=== PATIENT | male | born 1960 | race Caucasian/White ===

== ENCOUNTER → 2017-09-25 | Day surgery (SDC) | payer BC ==
[~2017-09-25] MED LIST: Acetaminophen IV 1GM/100ML * 1,000 MG/100 ML VIAL IVPB ONE; Buffered Lidocaine 0.9% SYRIN* 5 ML/SYR SYRINGE INTRADERM ONE; Bupivacaine 0.25% SDV* 30 ML ONE; Clindamycin 900 MG IVPREMIX(* 900 MG/50 ML SDV IV ONE; EPHEDrine (Pressors)* 50 MG/ML VIAL ONE; Famotidine IV* 10 MG/ML 2 ML (20 mg) ONE; HYDROmorphone INJ* 1 MG/ML CARPUJECT SYRINGE IV PRN; KETAMINE HCL* 50 MG/ML 10 ML VIAL ONE; Ketorolac INJ* 30 MG/ML 1 ML VIAL ONE; Levalbuterol 1.25MG/0.5ML NEB INH PRN; Levalbuterol 1.25MG/0.5ML NEB ONE; Lidocaine 2% VISCOUS* 15 ML UDC ONE; Midazolam* 1 MG/ML 2 ML VIAL (2 MG) ONE; Naloxone* 0.4 MG/ML 1 ML VIAL IV PRN; Ondansetron INJ* 2 MG/ML VIAL IV PRN; Ondansetron ODT TAB* 4 MG ONE; PROCHLORPERAZINE INJ 5 MG/ML 2 ML VIAL IV PRN; Propofol* 10 MG/ML 20 ML BTL IV PUSH ONE; Rocuronium* 10 MG/ML VIAL ONE; Scopolamine 1.5 mg* PATCH TRANSDERM PRN; Scopolamine PATCH Remove* 1 NOTE MISC PATCH OFF ONE; fentaNYL* 50 MCG/ML 2 ML VIAL (100 MCG VIAL) ONE; oxyCODONE TAB* 5 MG TAB ONE; oxyCODONE TAB* 5 MG TAB PO PRN
--- NOTE | 2017-09-25 14:57 | RAD ---
INDICATION: History of humerus fracture, trauma COMPARISONS: July 23, 2017, September 22, 2017 TECHNIQUE: Fluoroscopy was provided for a surgical procedure. Total fluoroscopy time is: 12 seconds FINDINGS: Spot images demonstrate internal fixation of the humerus. IMPRESSION: FLUOROSCOPY WAS PROVIDED FOR A SURGICAL PROCEDURE CPT II Codes: G9500
[2017-09-25] MEDS: fentaNYL* 50 MCG/ML 2 ML VIAL (100 MCG VIAL) IV PRN ×2 (15:39→15:44)
[2017-09-25 15:52] VITALS: BP 123/91
--- NOTE | 2017-09-26 10:37 | OP ---
DATE OF OPERATION: 09/25/17 [facility] DATE OF : 64 SURGEON: Holden Pineda MD. DRAFTER TOOL DESIGN: PÉREZ Rose, and PÉREZ [employer] student. An assistant in nursing was needed for the entirety of the procedure to aid in positioning of the arm and retraction. ANESTHESIOLOGIST: Dr. Gibbons. ANESTHESIA: General plus peripheral nerve block. PRE-OP DIAGNOSIS: Left humerus shaft nonunion. POST-OP DIAGNOSIS: Left humerus shaft nonunion. OPERATIVE PROCEDURE: Open repair of left humerus nonunion with internal fixation, local bone graft, and compression technique. 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 There is gross motion at the fracture site. We talked about surgical options. He understands the risk of radial nerve injury, understands the risk of nonunion despite surgery, the risk of infection. He wanted to proceed. ESTIMATED BLOOD LOSS: 400 mL. COMPLICATIONS: None. FINDINGS: See above and below. DESCRIPTION OF PROCEDURE: Marky was seen in the preoperative holding area. The correct site, side, and procedure were identified. We came back to the operating room. A block was performed. We had very difficult time intubating him as he had a very difficult airway. Ultimately, he was able to be intubated. The patient was then positioned supine at the arm table. The arm was prepped and draped in the usual fashion. A time-out was performed. I began by making a longitudinal incision just on the lateral border of the biceps. Dissection was carried down and the cephalic vein was mobilized and during the mobilization, it was lacerated and so I tied it off the interval was then developed down and the biceps was retracted medially. The brachialis was seen. The radial nerve was encountered and protected throughout the case. The brachialis was split down the middle in the internervous plane. The nonunion was apparent even for splitting the brachialis. It took quite some time in a lot of work and a lot of subperiosteal dissection. Ultimately, the disorganized fibrous tissue was excised. There was some callus that was excised to get back to good normal bone edges. I then made an attempt to reduce and clamp the nonunion; however, I could not get a good clamp as there just was not enough obliquity to the fracture. Please note that during the entirety of the dissection, the subperiosteal elevation, the placement of retractors and clamps. Great care was taken not to reach around the bone and grab the radial nerve. No blind clamping was done. No blind placement of retractors. Everything was done very carefully so as to protect the radial nerve. I decided to use a plate as a reduction tool, so I went ahead and selected an 8 hole narrow 4.5 large frag plate. This was placed in an appropriate location on the proximal fragment. It was secured with one screw. I then used the plate to help reduce the bone. Once I had it reduced, I placed a couple of clamps on it. The fluoroscopic imaging was used to confirm the reduction of the nonunion. It was looking very good on orthogonal imaging. I therefore placed another 4.5 compression screw proximally. I then placed sequentially 2 screws in the distal fragment both in compression technique. I had used the table top plate duran to bend the plate just a little bit so it was still proud off the bone at the site of the nonunion, so as not to gap the far cortex. I got excellent compression. There was just enough obliquity that I thought I could send a lag screw across the fracture and so I did with drilling first with a 3.2 drill bit and then with a 4.5 drill bit from distal to proximal. I was able to place one lag screw across the nonunion. This generated even more compression. At this point, we were maximally compressed and any additional compression would have resulted in fracture, so I went ahead and placed one more proximal cortical screw and one more distal cortical screw. Everything was extremely stable at this point. I packed a little with my local bone graft from when I took down some of the callus around the peripheries of the nonunion. I could not really pack any in the nonunion as it was compressed so tightly. The final fluoroscopic imaging showed good placement, good length of the screws, and good compression. The wound was irrigated out. The brachialis split was repaired with 0 Vicryl suture. The fascia was repaired with 2-0 Vicryl suture. Subcutaneous tissue was reapproximated with a few 2-0 Vicryl sutures. Skin was closed with mariela. The wounds were dressed with 4x4s, sterile Webril and then a long-arm splint with a lateral buttress was applied with the elbow in 80 degrees of flexion. The patient was then woken up and taken to the recovery room in stable condition. Postoperative neurological exam was not possible due to the patient having received a block. [id number] #: [id number] SUSANNE
== END | disposition home or self-care (01) ==
LOC: OR 08:17
PROVIDERS: ATTEND Orthopaedic Surgery Hand Surgery
DX: S42.302K Unspecified fracture of shaft of humerus, left arm, subsequent encounter for fracture with nonunion (principal); Z72.0 Tobacco use; Z68.28 Body mass index [BMI] 28.0-28.9, adult; X58.XXXD Exposure to other specified factors, subsequent encounter; H91.10 Presbycusis, unspecified ear
CPT/HCPCS: 36415; 76001; 86850; 86900; 86901; A9270-GY; C1713; C1776; J1885; J2250; J2704; J3010